=== PATIENT | female | born 1985 | race Caucasian/White ===

== ENCOUNTER 2023-08-03 11:34 | Emergency (ER) | payer BC, SELFPAY ==
--- NOTE | ~2023-08-03 | XR_ITS ---
Right wrist Technique: PA, oblique, lateral, and ulnar deviation views were obtained. Clinical History: Pain Findings: There is a transverse, nondisplaced fracture of the distal radial metaphysis. No intra-otis cular extension seen. Joint spaces are preserved. Soft tissues are unremarkable. Impression: Transverse, nondisplaced fracture of the distal radial metaphysis. No intra-articular extension. Reviewed, dictated and finalized at location . Impression: Transverse, nondisplaced fracture of the distal radial metaphysis. No intra-art icular extension.
--- NOTE | ~2023-08-03 | XR_ITS ---
Right Forearm AP and lateral views of the right forearm were performed. Clinical History: Pain Findings: There is a transverse, nondisplaced fracture the distal radial metaphysis. No other fractur e seen. Joint spaces are preserved. Soft tissues are unremarkable. Impression: Transverse, nondisplaced fracture of the distal radial metaphysis. Reviewed, dictated and finalized at location . Impression: Transverse, nondisplaced fracture of the distal radial metaphysis.
[2023-08-03 11:35] VITALS: BP 134/96; PULSE 84; RESP 16; TEMP 36.8; O2SAT 100
--- NOTE | 2023-08-03 12:43 | ED.GENADULT ---
HPI - General Adult General Chief complaint: Extremity Injury, Upper Stated complaint: R wrist pain Time Seen by Provider: 08/03/23 12:25 Source: patient Mode of arrival: ambulatory Limitations: no limitations History of Present Illness HPI narrative: This is a 37-year-old female who presents to the ED with chief complaint of right wrist injury that occurred 3 days ago. Reports she was at her son's sporting events when ball went out and she tried to stop it with her hand. She reports the ball directly struck her right wrist. Reports pain and swelling getting worse since injury. Reports minimal relief with ibuprofen at this point. Denies any further site of pain or. Denies numbness or weakness. Related Data Allergies Allergy/AdvReac Type Severity Reaction Status Date / Time No Known Allergies Allergy Verified 08/03/23 11:39 Review of Systems Review of Systems: All systems as dictated in HPI Exam Narrative: GENERAL: Well-appearing, well-nourished, and in no acute distress. HEAD: Normocephalic, atraumatic. EYES: PERRLA and EOMI. ENT: Nares clear, no rhinorrhea or epistaxis. Mucous membranes moist. Oropharynx without tonsillar hypertrophy exudate or other lesions. NECK: Supple. No adenopathy or masses. CHEST: No respiratory distress. Clear to auscultation. No wheezes rales or rhonchi HEART: Regular rate and rhythm. No murmur heard. Normal peripheral pulses. ABDOMEN: Soft, nontender, nondistended, normal active bowel sounds. MSK: RUE: No deformity. Tenderness throughout the right wrist joint. There is anatomical snuffbox tenderness present. Mild bruising in the area. Nearly full range of motion of the hand. Neurovascularly intact distally. Compartments soft. LUE: Benign SKIN: Warm, dry, no rash. NEURO: Alert and oriented x3. No focal deficits. PSYCH: Normal mood and affect. Course Vital Signs Vital signs: Vital Signs Temperature 98.2 F 08/03/23 11:35 Pulse Rate 84 08/03/23 11:35 Respiratory Rate 16 08/03/23 11:35 Blood Pressure 134/96 H 08/03/23 11:35 Pulse Oximetry 100 08/03/23 11:35 Oxygen Delivery Room Air 08/03/23 11:35 Temperature 98.2 F 08/03/23 11:35 Pulse Rate 84 08/03/23 11:35 Respiratory Rate 16 08/03/23 11:35 Blood Pressure 134/96 H 08/03/23 11:35 Pulse Oximetry 100 08/03/23 11:35 Oxygen Delivery Room Air 08/03/23 11:35 Procedures Orthopedic Splinting/Casting Injury #1: Splinting/Casting Date: 08/03/23 Splinting/Casting Time: 13:04 Side: right Upper Extremity Injury Location: forearm Upper Extremity Immobilizer: thumb spica Splint: customized in ED OCL: thumb spica Pre-Procedure Neuro Vascular Exam: normal Post-Procedure Neuro Vascular Exam: normal Medical Decision Making MDM Narrative Medical decision making narrative: This is a 37-year-old female who presents to the ED with chief complaint of right wrist injury that occurred Wednesday vitals are normal. Exam is remarkable for the above. X-rays of the right wrist and forearm show a nondisplaced transverse fracture of the right distal radius. There is no other fracture or dislocation. No intra-articular involvement. She does have anatomical snuffbox tenderness on exam. Thumb spica splint was placed. Prescription for [place] given. Ortho referral given as well. Pt will be discharged in stable condition. Return precautions given and supportive measures discussed. Pt is understanding and agreeable with plan for discharge and follow-up with PCP. Vital Signs Vital Signs: Vital Signs Temperature 98.2 F 08/03/23 11:35 Pulse Rate 84 08/03/23 11:35 Respiratory Rate 16 08/03/23 11:35 Blood Pressure 134/96 H 08/03/23 11:35 Pulse Oximetry 100 08/03/23 11:35 Oxygen Delivery Room Air 08/03/23 11:35 Temperature 98.2 F 08/03/23 11:35 Pulse Rate 84 08/03/23 11:35 Respiratory Rate 16 08/03/23 11:35 Bloo
[2023-08-03] MEDS: HYDROcodone/acetaminophen (*CRX) 7.5-325 MG TABLET 1 TAB PO (12:50)
[2023-08-03] MEDS: KETOROLAC 30 MG/ML VIAL (*BKC) IM (12:50)
== END 2023-08-03 13:17 | disposition home or self-care (01) ==
PROVIDERS: Emergency Provider Physician Assistant; PCP Family Medicine
DX: S52.591A Other fractures of lower end of right radius, initial encounter for closed fracture (principal); W21.02XA Struck by soccer ball, initial encounter
CPT/HCPCS: 29125; 73090; 73110; 96372; 99284; A9270; J1885

== ENCOUNTER 2024-12-28 08:18 | Outpatient (CLI) | payer BC, SELFPAY ==
--- NOTE | ~2024-12-28 | XR_ITS ---
CHEST RADIOGRAPH, PA AND LATERAL CLINICAL HISTORY: R05.9 - Cough, unspecified SOB AND COUGH . COMPARISON: None available TECHNIQUE: PA and lateral views of the chest. FINDINGS The cardiomediastinal silhouette is unremarkable. The lungs are clear. Visualized osseous structures and soft tissues are unremarkable. IMPRESSION: No focal infiltrate or effusion. Reviewed, dictated and finalized at location A. RACTIVE DIGITAL MEDIA SPECIALIST
--- OUTSIDE RECORDS SUMMARY | 2024-12-28 08:29 | XMS_ITS | Clinical Summary ---
Author Organization [facility] Address [address] [place], [place] [id number] Care Team Providers Care Hoop Flaring Machine Operator Name Role Phone Sidra Lang MD Primary Care Provider Allergies No known active allergies Medications HYDROcodone-piper taminophen (NORCO) 5-325 mg per tablet Take by mouth every 8 (eight) hours as needed 3 Active fluticasone furoate-vilante roL (Breo Ellipta) 100-25 mcg/dose diskus inhaler Inhale 1 puff daily 1 Active fluticasone propionate (FLONASE) 50 mcg/actuation nasal spray Administer 2 sprays into affected nostril(s) daily 0 Active escitalopram (LEXAPRO) 10 mg tablet 3 Active busPIRone (BUSPAR) 15 mg tablet 3 Active benzonatate (TESSALON) 200 mg capsuleIndicati ons:Viral URI with cough Take 1 capsule (200 mg total) by mouth 3 (three) times a day as needed for cough 42 capsule 3 Active Active Problems Problem Noted Date Diagnosed Date Hyperlipidemia 08/10/2023 Severe menstrual cramps 05/13/2017 Chronic diarrhea 03/10/2014 Overview (01/29/2017): Chronic Diarrhea Vaginal delivery 11/04/2011 Medical History Medical History Date Comments Anemia Anxiety Asthma Hypercholesteremia Family History Medical History Relation Name Comments Alcohol abuse Brother Hypertension Brother Alcohol abuse Father Oscar Martinezen Heart disease Father Oscar Martinezen Heart disease ; ALS Mother ALS; Cause of D eath: ALS Heart disease Mother Hypertension Mother Stroke Other 4 Stroke; Cause o f : Stroke Hypertension Other 5 Hypertension; Hyperlipidemia Other 6 Hyperlipidemi a; Relation Name Status Comments Brother Father Oscar Sanford Alive Mother Other 1 Other 2 Alive Other 3 Alive Other 4 Other 5 Other 6 Social History Tobacco Use Types Packs/Day Years Used Date Smoking Tobacco: Never Smokeless Tobacco: Never Tobacco Cessation:Counseling Given: Not Answered Alcohol Use Standard Drinks/Week Comments Yes 0 (1 standard drink = 0.6 oz pur e alcohol) Comments No Sex and Gender Information Value Date Recorded Sex Assigned at Not on file Legal Sex Female 1:03 AM VENDOR QUALITY SUPERVISOR Gender Identity Not on file Sexual Orientation Not on file Obstetrics History Last Filed Vital Signs Vital Sign Reading Time Taken Comments Blood Pressure 126/86 09/06/2023 4:28 PM VENDOR QUALITY SUPERVISOR Pulse 73 09/06/2023 4:28 PM VENDOR QUALITY SUPERVISOR Temperature 36.7 C (98.1 F) 09/06/2023 4:28 PM VENDOR QUALITY SUPERVISOR Respiratory Rate 18 09/06/2023 4:28 PM VENDOR QUALITY SUPERVISOR Oxygen Saturation 98% 09/06/2023 4:28 PM VENDOR QUALITY SUPERVISOR Inhaled Oxygen Concentration - - Weight 74.8 kg (165 lb) 09/06/2023 4:28 PM VENDOR QUALITY SUPERVISOR Height 154.9 cm (5' 0.98 ) 09/06/2023 4:28 PM CS T Body Mass Index 31.19 09/06/2023 4:28 PM VENDOR QUALITY SUPERVISOR Plan of Treatment Health Maintenance Due Date Last Done Comments Cervical Cancer Screening 1985 Depression Screening 1985 Hepatitis C Screening 1985 Hepatitis B Screening 2003 Regular Well Visit/Exam 18-64 2003 Varicella Vaccines (1 of 2 - 13+ 2-dose series) 08/15/2020 Covid-19 Vaccine ( - season) 2024 11/01/2020, 10/11/2020 DTaP/Tdap/Td Vaccine (4 - Td or Tdap) 06/25/2024 06/25/2014, 08/21/2010, 05/16/2008 Influenza Vaccine (#1) 2024 2, 07/18/2020, 07/18/2020, Additional history exists Pneumococcal vaccine <65 Aged Out 02/22/2015 No longer eligible based on patient's age to complete this topic HPV Vaccines Aged Out No longer eligi ble based on patient's age to complete this topic Insurance [employer] ACCESS OOS Care Teams Hoop Flaring Machine Operator Relationship Specialty Start Date End Date Sidra Lang MD PCP - General Family Medicine 09/06/23
--- OUTSIDE RECORDS SUMMARY | 2024-12-28 08:29 | XMS_ITS | Encounter Summary ---
Author Organization [facility] Address [address] [address] Phone Care Team Providers Care Transfer Car Operator Name Role Phone Sidra Lang MD Primary Care Provider [phone] [phone] Reason for Referral * Radiology Services (Routine) - Closed Specialty Diagnoses / Procedures Referred By Quinn larry Referred To Contact Radiology Diagnoses Right ankle pain, unspecified chronicity Procedures XR ANKLE 3 OR MORE VIEWS RIGHT Cheo Daniels DPM [address] [place] [id number] Phone: tel: fax: Referral ID Status Reason Start Date Expiration Date Visits Re quested Visits Authorized [id number] Closed 10/06/2021 1 1 R SEPARATION PHOTOGRAPHER Encounter Details Date Type Department Care Team (Latest Contact Info) Description 10/06/2021 Transcribe Orders [facility] Patient Access Admitting [address] [place] [id number] Cheo Daniels DPM [address] [place] [id number] Right ankle pain, unspecified chronicity (Primary Dx) Social History Tobacco Use Types Packs/Day Years Used Date Smoking Tobacco: Never Smokeless Tobacco: Never Alcohol Use Standard Drinks/Week Comments No 0 (1 standard drink = 0.6 oz pur e alcohol) PHQ-2 Answer Date Recorded Total Score - Questions 1-9 13 04/2020 Education Answer Date Recorded What is the highest level of school you have completed or the highest degree you have received? Master's degree (e.g., MA, MS, Theresa, MEd, PRINCIPAL ACCOUNTS CLERK, CALEB) 03/07/2021 Sexually Active Control Partners Comments Never Comments No Sex and Gender Information Value Date Recorded Sex Assigned at Not on file Legal Sex Female 9:31 PM CDT Gender Identity Not on file Sexual Orientation Not on file COVID-19 Exposure Response Date Recorded In the last month, have you been in contact with someone who was confirmed or suspected to have Coronavirus / COVID-19? No / Unsure 10/07/2021 7:47 AM COLOR SEPARATION PHOTOGRAPHER documented as of this encounter Plan of Treatment Not on file documented as of this encounter Results * XR ANKLE 3 OR MORE VIEWS RIGHT (10/07/2021 8:12 AM COLOR SEPARATION PHOTOGRAPHER) Anatomical Region Laterality Modality LOWER EXTREMITY, ankle Right Digital R adiography 10/07/2021 9:56 AM COLOR SEPARATION PHOTOGRAPHER Impressions 10/07/2021 9:59 AM COLOR SEPARATION PHOTOGRAPHER IMPRESSION: Moderate lateral right ankle soft tissue swelling. Small right ankle effusion. Narrative 10/07/2021 9:59 AM COLOR SEPARATION PHOTOGRAPHER EXAM DESCRIPTION: XR ANKLE 3 OR MORE VIEWS RIGHT REASON FOR STUDY: Pain in right ankle and joints of right foot TECHNIQUE: Three views weight-bearing submitted with comparison 06/09/2021. FINDINGS: There is moderate lateral right ankle soft tissue swelling. No acute fractures identified. The ankle joint space and mortise appear normal. Ankle effusion is present. THIS IS AN ELECTRONICALLY VERIFIED FINAL REPORT 10/07/2021 9:56 AM - Electronically signed by Jeremy Kumar M.D. MF: ISAC Report ID: [id number] Reading Location: [id number] Procedure Note Jeremy Kumar MD - 10/07/2021 EXAM DESCRIPTION: XR ANKLE 3 OR MORE VIEWS RIGHT REASON FOR STUDY: Pain in right ankle and joints of right foot TECHNIQUE: Three views weight-bearing submitted with comparison 06/09/2021. FINDINGS: There is moderate lateral right ankle soft tissue swelling. No acute fractures identified. The ankle joint space and mortise appear normal. Ankle effusion is present. THIS IS AN ELECTRONICALLY VERIFIED FINAL REPORT 10/07/2021 9:56 AM - Electronically signed by Jeremy Kumar M.D. MF: ISAC Report ID: [id number] Reading Location: [id number] IMPRESSION: Moderate lateral right ankle soft tissue swelling. Small right ankle effusion. Cheo Daniels DPM IMG DIAGNOSTIC ORDERABLES Fin al Result documented in this encounter Visit Diagnoses Diagnosis Right ankle pain, unspecified chronicity- Primary Right ankle pain, unspecified chronicity documented in this encounter Additional Health Concerns Infection Onset Date Last Indicated Resolved Time COVID - 19 10/30/2021 10/30/2021 11/01/2021 3:44 PM COLOR SEPARATION PHOTOGRAPHER COVID - 19 Confirmed 10/30/2021 10/30/2021 022 12:16 AM COLOR SEPARATION PHOTOGRAPHER COVID - 19 08/18/2022 08/18/2022 08/28/2022 12:1 6 AM CDT Assessment Noted Time PHQ-9 Depression Total Score: 13 020 2:16 PM CDT documented as of this encounter Care Teams Transfer Car Operator Relationship Specialty Start Date End Date Sidra Lang MD [address] [place] [address] PCP - General Family Medicine 09/17/15 04/09/24 documented as of this encounter
--- OUTSIDE RECORDS SUMMARY | 2024-12-28 08:29 | XMS_ITS | Clinical Summary ---
Author Organization [facility] Address [address] [address] Phone Care Team Providers Care Aluminum Boat Inspector Name Role Phone Unavailable Primary Care Provider Unavailabl e Allergies No known active allergies Medications Docusate Calcium (STOOL SOFTENER PO) Take by mouth. Activ e Acetaminophen (TYLENOL PO) Take by mouth. Ac tive fluticasone (FLONASE) 50 MCG/ACT Suspension 2 Sprays by Nasal route daily. Use in each nostril as directed. 1 Bottle 3 0 Active ALBUTEROL IN take by inhalation. Active diphenhydrAMINE HCl (BENADRYL PO) Take by mouth. Activ e guaiFENesin (MUCINEX PO) Take by mouth. Ac tive fluticasone-vivienne nterol (Breo Ellipta) 100-25 MCG/INH AEROSOL POWDER, BREATH ACTIVATED take 1 Puff by inhalation daily. 1 Each 2 1 Active naproxen sodium (ANAPROX) 220 MG Tablet Take 220 mg by mouth 2 times daily (with meals). Active traMADol (ULTRAM) 50 MG TabletIndication s:Acute right ankle pain Take 1 Tablet by mouth every 6 hours as needed for Moderate or more severe pain. 20 Tablet 1 Active Additional Information Patient not taking.Reported on 08/18/2022 Naproxen Sod-diphenhydrAM INE 220-25 MG Tablet naproxen 220 mg-diphenhydram ine 25 mg tablet Take by oral route. Active Neomycin-Polymyx in-Dexameth 0.1 % Ointment neomycin 3.5 mg/g-polymyxin B 10,000 unit/g-dexameth 0.1 % eye oint APPLY A SMALL AMOUNT TO THE AFFECTED AREA EVERY NIGHT AT BEDTIME AFTER WARM COMPRESS Active escitalopram (LEXAPRO) 10 MG TabletIndication s:Depression, unspecified depression type TAKE 1 TABLET BY MOUTH DAILY 90 Tablet 1 3 Active busPIRone (BUSPAR) 15 MG Tablet TAKE 1 TABLET BY MOUTH TWICE DAILY 180 Tablet 1 3 Active Active Problems Problem Noted Date Diagnosed Date Severe menstrual cramps 05/13/2017 Hyperlipidemia Immunizations Immunization Administration Dates Next Due Covid-19, Mrna, Lnp-s, Pf, 3 0 Mcg/0.3 Ml Dose (DancingAnchovy) 11/01/2020,10/11/2020 Influenza Vaccine Nasal 07/18/2020 Influenza Vaccine greater than 3 yrs 07/25/2016, 07/25/2015,11/05/2011 Influenza Vaccine less than 3 yrs 07/26/2019,10/2016 Influenza Vaccine, Quadrivalent, PF 08/04/2022,0 07/18/2020 Influenza, Seasonal, Injecta ble, Undefined 07/26/2019,07/25/2017,07/25/2016,07/25,10/25/2011 Meningococcal Polysaccharide Vaccine (MPSV4) 05/12/2004 Pneumococcal Vaccine Adult - 23 Valent 5 TDAP Vaccine 06/25/2014,08/21/2010,05/16/2008 Typhoid, ViCPs 02/28/2015 Family History Medical History Relation Name Comments Congestive Heart Failure Father Hypertension Father Relation Name Status Comments Father Alive Mother Social History Tobacco Use Types Packs/Day Years Used Date Smoking Tobacco: Never Smokeless Tobacco: Never Tobacco Cessation:Counseling Given: No Alcohol Use Standard Drinks/Week Comments No 0 (1 standard drink = 0.6 oz pur e alcohol) PHQ-2 Answer Date Recorded Total Score - Questions 1-9 5 07/26 Education Answer Date Recorded What is the highest level of school you have completed or the highest degree you have received? Master's degree (e.g., MA, MS, Theresa, MEd, CURATOR OF MANUSCRIPTS, CALEB) 03/07/2021 Sexually Active Control Partners Comments Never Comments No Sex and Gender Information Value Date Recorded Sex Assigned at Not on file Legal Sex Female 9:31 PM CDT Gender Identity Not on file Sexual Orientation Not on file Last Filed Vital Signs Vital Sign Reading Time Taken Comments Blood Pressure 108/64 08/18/2022 11:23 AM CDT Pulse 69 08/18/2022 11:23 AM CDT Temperature 36.5 C (97.7 F) 08/18/2022 11:23 AM CDT Respiratory Rate 18 08/18/2022 11:23 AM CDT Oxygen Saturation 97% 08/18/2022 11:23 AM CDT Inhaled Oxygen Concentration - - Weight 61.2 kg (135 lb) 08/18/2022 11:23 AM CDT Height 154.9 cm (5' 1 ) 08/18/2022 11:23 AM CDT Body Mass Index 25.51 08/18/2022 11:23 AM CDT Plan of Treatment Health Maintenance Due Date Last Done Comments Hepatitis C Virus (HCV) Screening 1985 Hepatitis B Immunization (1 of 3 - 19+ 3-dose series) 2004 HPV/Cotest 2015 Cervical Cancer Screening (CCS) 05/13/2020 Pap Smear 05/13/2020 05/13/2017, 12/21/2012 Influenza Immunization (#1) 06/25/202407/25, 07/18/2020, 07/18/2020, Additional history exists SARS-COV-2 Immunization ( season) 2024 11/01/2020, 10/11/2020 Td Immunization Every 10 Years (Adults With 1 Tdap) 06/25/2024 06/25/2014, 08/21/2010, 05/16/2008 Respiratory Syncytial Virus (RSV) Immunization (Adult) (1 - 1-dose 75+ series) 2060 Meningococcal Immunization (ACWY) Aged Out 05/12/2004 No longer eligible based on patient's age to complete this topic Pneumococcal Immunization Combined Aged Out 02/22/2015 No longer eligible based on patient's age to complete this topic Rotavirus Immunization Aged Out No lo nger eligible based on patient's age to complete this topic Medical Devices Implanted Type Area Tax Attorney Device Identifier Shelf Expiration Date Model / Serial / Lot Implant Sysyem, Internalbrace Lisfranc Ligament Augmentation Implanted:Qty: 1 on 11/22/2019 by Paulino Hunt DPM at [facility] Left: Foot [employer] 06/24/2023 AR-1698-CP / [id number] / [id number] Dx Swivelock Implanted:Qty: 1 on 11/22/2019 by Paulino Hunt DPM at [facility] Left: Foot 12/23/2023 [id number] / [id number] / [id number] Procedures Procedure Name Priority Date/Time Associated Diagnosis Comments PATHOLOGY CYTOLOGY ICER MACHINE OPERATOR Routine 05/13/2017 4:55 PM CDT Well woman exam from Last 3 Months or Most Recently Relevant to Health Maintenance Results * PATHOLOGY CYTOLOGY ICER MACHINE OPERATOR (05/13/2017 4:55 PM CDT) SPECIMEN ADEQUACY Satisfactory for evaluation. No endocervical cells present. 05/18/2017 1:24 PM CDT [facility] DESCRIPTIVE DIAGNOSIS Negative for intraepithelial lesions. No dysplastic cells present. 05/18/2017 1:24 PM CDT [facility] MATED EXAMINATION Analysis of this sample has been assisted by an automated imaging and review system ([employer] System, [employer], [place], [place]). This case is further evaluated and finalized by a jeweler apprentice and/or pathologist. 05/18/2017 1:24 PM CDT [facility] DISCLAIMER The PAP smear is a screening test designed to detect cancerous or precancerous cells of the uterine cervix. It is one of the best means available for detection of cervical cancer but still carries an inherent false-negative rate. The consequences of a false-negative PAP result can be minimized by adhering to current screening guidelines. The following are general guidelines recommended by the ACS, ASCP, ASCCP, and ACOG: PAP testing is recommended every three years for women 21-29, Co-Testing , a PAP test in conjunction with an HPV (Human Papillomavirus) test for women ages 30-65, and no PAP or HPV testing for women under the age of 21 or older than 65 unless clinically indicated. 05/18/2017 1:24 PM CDT [facility] Case Report Gynecologic Cytology Report Case: [id number] Authorizing Provider: Sidra Lang MD Collected: 05/13/2017 04:55 PM Ordering Location: [facility] PHYSICIAN Received: 05/13/2017 04:55 PM [facility] First Screen: Keri Clemente Specimen: Cervical/Endocervic al, liquid based thin layer preparation (Thin Prep ), CERVIX/ENDOCERVIX 05/18/2017 1:24 PM CDT [facility] HPV Reflex if ASCUS? Yes 05/18/2017 1:24 PM CDT [facility] Specimen of unknown material (specimen) CERVIX UTERI STRUCTURE / Unknown 05/13/2017 4:55 PM CDT 05/13/2017 4:55 PM CDT Sidra Lang MD PATHOLOGY/CYTOLOGY ORDERABL ES Final Result Performing Organization Address City/State/[facility] Co de Phone Number [facility] [address] [place] [address], from Last 3 Months or Most Recently Relevant to Health Maintenance Insurance [facility] OS EMPLOYEE (Home[address] [phone]
--- OUTSIDE RECORDS SUMMARY | 2024-12-28 08:29 | XMS_ITS | Encounter Summary ---
Author Organization [facility] Address [address] [address] Phone Care Team Providers Care School Library Media Program Director Name Role Phone Sidra Lang MD Primary Care Provider [phone] Reason for Visit * Reason Comments Medication Refill Encounter Details Date Type Department Care Team (Late st Contact Info) Description 11/08/2023 Refill [facility] - Family Medicine [facility] [address] [place] [address] Sidra Lang MD [address] [place] [address] Medication Refill Social History Tobacco Use Types Packs/Day Years [...] degree you have received? Master's degree (e.g., DARLIN, MS, Theresa, Nathan, CRM MARKETING ANALYST, CALEB) 03/07/2021 Sexually Active Control Partners Comments Never Comments No Sex and Gender Information Value Date Recorded Sex Assigned at Not on file Legal Sex Female 9:31 PM CDT Gender Identity Not on file Sexual Orientation Not on file documented as of this encounter Miscellaneous Notes * Telephone Encounter - Anna Wahl RMA - 11/09/2023 12:54 PM WELL SHOOTER Lvm to schedule CYNTHIA if she would like. SHOOTER * Telephone Encounter - Jenny Driscoll APRN, CNP - 11/09/2023 7:30 AM WELL SHOOTER Needs appointment and needs to schedule a CYNTHIA with new provider. SHOOTER * Telephone Encounter - Valeria Starkey RN - 11/08/2023 1:13 PM CST Medication failed the protocol, provider to review and approve the medication order if appropriate. Requested Prescriptions Pending Prescriptions Disp Refills escitalopram (LEXAPRO) 10 MG Tablet [Pharmacy Med Name: Escitalopram Oxalate 10 MG Oral Tablet] 30 Tablet 0 Sig: TAKE 1 TABLET BY MOUTH DAILY [facility] (6 Month Refill Only) Protocol Failed - 11/08/2023 7:26 AM Failed - Visit with relevant provider in past 6 months or upcoming 90 days Recent Visits No visits were found meeting these conditions. Showing recent visits within past 182 days and meeting all other requirements Future Appointments No visits were found meeting these conditions. Showing future appointments within next 90 days and meeting all other requirements Failed - Has an encounter in the past 6 months with a depression, anxiety, adjustment disorder, OCD, or PTSD visit diagnosis Passed - No test in the past 12 months or most recent test was negative Passed - No active on record Passed - Patient has established therapy with [facility] for at least 6 months SHOOTER documented in this encounter Plan of Treatment Not on file documented as of this encounter Visit Diagnoses Diagnosis Depression, unspecified depression type documented in this encounter Additional Health Concerns Assessment Noted Time PHQ-9 Depression Total Score: 5 08/18/20 22 11:00 AM CDT documented as of this encounter Care Teams School Library Media Program Director Relationship Specialty Start Date End Date Sidra Lang MD [address] [place] [phone] PCP - General Family Medicine 09/17/15 04/09/24 documented as of this encounter
--- OUTSIDE RECORDS SUMMARY | 2024-12-28 08:29 | XMS_ITS | Encounter Summary ---
Author Organization [facility] Address [address] [place] [address] Phone Care Team Providers Care Highway Painter Name Role Phone Sidra Lang MD Primary Care Provider [phone] Reason for Visit * Reason Comments Medication Refill Encounter Details Date Type Department Care Team (Late st Contact Info) Description 12/30/2020 Refill [facility] - Family Medicine [facility] [address] [place] [address] Sidra Lang MD [address] [place] [address] Medication Refill Social History Tobacco Use Types Packs/Day Years Used Date Smoking Tobacco: Never Smokeless Tobacco: Never Alcohol Use Standard Drinks/Week Comments No 0 (1 standard drink = 0.6 oz pur e alcohol) PHQ-2 Answer Date Recorded Total Score - Questions 1-9 13 04/2020 Sexually Active Control Partners Comments Never Comments No Sex and Gender Information Value Date Recorded Sex Assigned at Not on file Legal Sex Female 9:31 PM CDT Gender Identity Not on file Sexual Orientation Not on file documented as of this encounter Miscellaneous Notes * Telephone Encounter - Valeria Starkey RN - 12/30/2020 3:02 PM CST The original prescription was reordered on 12/30/2020 by Sidra Lang MD duplicate LESS TEAM MEMBER documented in this encounter Plan of Treatment Not on file documented as of this encounter Visit Diagnoses Not on filedocumented in this encounter Additional Health Concerns Infection Onset Date Last Indicated Resolved Time COVID - 19 03/06/2021 03/06/2021 03/09/2021 7:02 AM CDT COVID - 19 10/30/2021 10/30/2021 11/01/2021 3:44 PM WIRELESS TEAM MEMBER COVID - 19 Confirmed 10/30/2021 10/30/2021 022 12:16 AM WIRELESS TEAM MEMBER COVID - 19 08/18/2022 08/18/2022 08/28/2022 12:1 6 AM CDT Assessment Noted Time PHQ-9 Depression Total Score: 13 020 2:16 PM CDT documented as of this encounter Care Teams Highway Painter Relationship Specialty Start Date End Date Sidra Lang MD [address] [place] [address] PCP - General Family Medicine 09/17/15 04/09/24 documented as of this encounter
--- OUTSIDE RECORDS SUMMARY | 2024-12-28 08:29 | XMS_ITS | Encounter Summary ---
Author Organization [facility] Address [address] [place] [address] Care Team Providers Care Javascript Engineer Name Role Phone Ne Alexander MD Primary Care Provider [phone] Encounter Details Date Type Department Care Team (Late st Contact Info) Description 01/20/2008 Inpatient Historical [facility] Shira Bruno MD NO ADDRESS ON FILE Social History Tobacco Use Types Packs/Day Years Used Date Smoking Tobacco: Never Assessed Comments Unknown Sex and Gender Information Value Date Recorded Sex Assigned at Not on file Legal Sex Female 5:32 AM PHOTOGRAPHY ASSISTANT Gender Identity Not on file Sexual Orientation Not on file documented as of this encounter Plan of Treatment Not on file documented as of this encounter Visit Diagnoses Not on filedocumented in this encounter Care Teams Javascript Engineer Relationship Specialty Start Date End Date Ne Alexander MD PCP - General Internal Medicine 06/04/10 documented as of this encounter
--- OUTSIDE RECORDS SUMMARY | 2024-12-28 08:29 | XMS_ITS | Clinical Summary ---
Author Organization [facility] Address [address] [place] [address] Phone Care Team Providers Care Professor Of Oceanography Name Role Phone Ne Alexander MD Primary Care Provider [phone] Allergies No known active allergies Medications vit-iron fumarate-fa () 28-0.8 mg Oral Tab Take 1 Tab by mouth daily. Active ferrous sulfate 134 mg (27 mg iron) Oral Tab Take 1 Tab by mouth daily. Active oxyCODONE-aceta minophen (PERCOCET) 5-325 mg Oral tablet Take 1 Tab by mouth every 4 hours as needed for Pain, Moderate (For Pain Scale 4-6). 20 Tab 0 11/06/2011 Active ibuprofen (MOTRIN) 600 mg Oral tablet Take 1 Tab by mouth every 6 hours as needed for Pain. 20 Tab 1 11/06/2011 Active Active Problems Problem Noted Date Diagnosed Date Vaginal delivery 11/0411/04/2011 labor, GBS+, O+,arom 08/20/2010 Resolved Problems Problem Noted Date Diagnosed Date Resolved Date (weu) labor, O+, GBS pos, pcn, AROM 1130 11/04/2011 11/04/2011 Immunizations Immunization Administration Dates Next Due (ADACEL/BOOSTRIX)(10 YR UP) TDAP VACCINE, 0.5ML, IM 08/21/2010 Influenza Vaccine Split PF ID 11/05/2011 Family History Medical History Relation Name Comments Cancer Father skin Heart Disease Father Hypertension Father Other Mother ALS Relation Name Status Comments Father Alive Mother Social History Tobacco Use Types Packs/Day Years Used Date Smoking Tobacco: Never Alcohol Use Standard Drinks/Week Comments No 0 (1 standard drink = 0.6 oz pur e alcohol) Comments Unknown Sex and Gender Information Value Date Recorded Sex Assigned at Not on file Legal Sex Female 5:32 AM CONTINUOUS MINING MACHINE COAL MINER Gender Identity Not on file Sexual Orientation Not on file Occupation Industry Job Start Date Job End Date Not on file Not on file Not on file Not on file Last Filed Vital Signs Vital Sign Reading Time Taken Comments Blood Pressure 120/70 11/06/2011 8:19 AM CONTINUOUS MINING MACHINE COAL MINER Pulse 80 11/06/2011 8:19 AM CONTINUOUS MINING MACHINE COAL MINER Temperature 36.9 C (98.5 F) 11/06/2011 8:19 AM CONTINUOUS MINING MACHINE COAL MINER Respiratory Rate 20 11/06/2011 8:19 AM CONTINUOUS MINING MACHINE COAL MINER Oxygen Saturation 97% 11/04/2011 11:07 AM CONTINUOUS MINING MACHINE COAL MINER Inhaled Oxygen Concentration - - Weight 82.1 kg (181 lb) 11/04/2011 9:37 AM CONTINUOUS MINING MACHINE COAL MINER Height 157.5 cm (5' 2 ) 11/04/2011 9:37 AM CONTINUOUS MINING MACHINE COAL MINER Body Mass Index 33.11 11/04/2011 9:37 AM CONTINUOUS MINING MACHINE COAL MINER Plan of Treatment Health Maintenance Due Date Last Done Comments HEPATITIS B VACCINES (1 of 3 - 19+ 3-dose series) 2004 CERVICAL CANCER SCREENING 2015 DTAP/TDAP/TD VACCINES (2 - T d or Tdap) 08/21/2020 08/21/2010 INFLUENZA VACCINE (#1) 2024 11/05/2011 HPV VACCINES Aged Out No longer eligi ble based on patient's age to complete this topic Insurance BLUE ACCESS/TRUE BLUE PPO Advance Directives For more information, please contact: [phone] * Full Code (Latest Code Status on File) Date Activated Date Inactivated Comments 11/04/2011 4:22 PM 11/06/2011 12:46 PM * Full Code Date Activated Date Inactivated Comments 11/04/2011 9:47 AM 11/04/2011 4:22 PM * Full Code Date Activated Date Inactivated Comments 08/20/2010 9:40 PM 2010 2:30 PM * Full Code Date Activated Date Inactivated Comments 08/20/2010 10:43 AM 08/20/2010 9:40 PM * Full Code Date Activated Date Inactivated Comments 08/07/2010 1:19 PM 08/07/2010 5:29 PM Care Teams Professor Of Oceanography Relationship Specialty Start Date End Date Ne Alexander MD PCP - General Internal Medicine 06/04/10
--- OUTSIDE RECORDS SUMMARY | 2024-12-28 08:29 | XMS_ITS | Encounter Summary ---
Author Organization [facility] Address [address] [place] [address] Phone Care Team Providers Care Relay Checker Name Role Phone Sidra Lang MD Primary Care Provider [phone] Reason for Visit * Reason Comments Medication Refill Encounter Details Date Type Department Care Team (Late st Contact Info) Description 06/17/2023 Refill [facility] - Family Medicine [facility] [address] [place] [address] Sidra Lang MD [address] [place] [address] Medication Refill Social History Tobacco Use Types [...] Master's degree (e.g., [place], [place], Theresa, Nathan, FIREPOT OPERATOR AND TENDER, CALEB) 03/07/2021 Sexually Active Control Partners Comments Never Comments No Sex and Gender Information Value Date Recorded Sex Assigned at Not on file Legal Sex Female 9:31 PM CDT Gender Identity Not on file Sexual Orientation Not on file documented as of this encounter Miscellaneous Notes * Telephone Encounter - Valeria Starkey RN - 06/18/2023 9:12 AM CDT Medication failed the protocol, provider to review and approve the medication order if appropriate. Requested Prescriptions Pending Prescriptions Disp Refills escitalopram (LEXAPRO) 10 MG Tablet [Pharmacy Med Name: Escitalopram Oxalate 10 MG Oral Tablet] 90 Tablet 1 Sig: TAKE 1 TABLET BY MOUTH DAILY SSRI (6 Month Refill Only) Protocol Failed - 06/17/2023 9:25 PM Failed - Visit with relevant provider in [...] with SSRI for at least 6 months documented in this encounter Plan of Treatment Not on file documented as of this encounter Visit Diagnoses Diagnosis Depression, unspecified depression type documented in this encounter Additional Health Concerns Assessment Noted Time PHQ-9 Depression Total Score: 5 08/18/20 22 11:00 AM CDT documented as of this encounter Care Teams Relay Checker Relationship Specialty Start Date End Date Sidra Lang MD [address] [place] [address] PCP - General Family Medicine 09/17/15 04/09/24 documented as of this encounter
--- OUTSIDE RECORDS SUMMARY | 2024-12-28 08:29 | XMS_ITS | Referral Summary ---
Author Organization [facility] Address [address] [place] [address] Care Team Providers Care Aerographer Name Role Phone Sidra Lang MD Primary Care Provider [phone] Allergies No known active allergies Medications HYDROcodone-piper [...] Overview (01/29/2017): Chronic Diarrhea Vaginal delivery 11/04/2011 Social History Tobacco Use Types Packs/Day Years Used Date Smoking Tobacco: Never Smokeless Tobacco: Never Tobacco Cessation:Counseling Given: Not Answered Alcohol Use Standard Drinks/Week Comments Yes 0 (1 standard drink = 0.6 oz pur e alcohol) Comments No Sex and Gender Information Value Date Recorded Sex Assigned at Not on file Legal Sex Female 1:03 AM WELDER FITTER Gender Identity Not on file Sexual Orientation Not on file Last Filed Vital Signs Vital Sign Reading Time Taken Comments Blood Pressure 126/86 09/06/2023 4:28 PM WELDER FITTER Pulse 73 09/06/2023 4:28 PM WELDER FITTER Temperature 36.7 C (98.1 F) 09/06/2023 4:28 PM WELDER FITTER Respiratory Rate 18 09/06/2023 4:28 PM WELDER FITTER Oxygen Saturation 98% 09/06/2023 4:28 PM WELDER FITTER Inhaled Oxygen Concentration - - Weight 74.8 kg (165 lb) 09/06/2023 4:28 PM WELDER FITTER Height 154.9 cm (5' 0.98 ) 09/06/2023 4:28 PM CS T Body Mass Index 31.19 09/06/2023 4:28 PM WELDER FITTER Plan of Treatment Not on file Insurance [employer] Care Teams Aerographer Relationship Specialty Start Date End Date Sidra Lang MD PCP - General Family Medicine 09/06/23
--- OUTSIDE RECORDS SUMMARY | 2024-12-28 08:29 | XMS_ITS | Encounter Summary ---
Author Organization [facility] Address [address] [place] [address] Phone Care Team Providers Care Blocker And Cutter Contact Lens Name Role Phone Sidra Lang MD Primary Care Provider [phone] Reason for Visit * Reason Comments Medication Refill Encounter Details Date Type Department Care Team (Late st Contact Info) Description 07/21/2023 Refill [facility] - Family Medicine [facility] [address] [place] [address] Sidra Lang MD [address] [place] [address] Medication Refill Social History Tobacco Use Types [...] Master's degree (e.g., [place]AR[place], MS, Theresa, Nathan, RESIDENTIAL RECYCLE DRIVER, CALEB) 03/07/2021 Sexually Active Control Partners Comments Never Comments No Sex and Gender Information Value Date Recorded Sex Assigned at Not on file Legal Sex Female 9:31 PM CDT Gender Identity Not on file Sexual Orientation Not on file documented as of this encounter Miscellaneous Notes * Telephone Encounter - Valeria Starkey RN - 07/22/2023 1:12 PM CDT Medication failed the protocol, provider to review and approve the medication order if appropriate. Requested Prescriptions Pending Prescriptions Disp Refills busPIRone (BUSPAR) 15 MG Tablet [Pharmacy Med Name: BUSPIRONE 15MG TAB] 180 Tablet 1 Sig: TAKE 1 TABLET BY MOUTH TWICE DAILY Buspirone (6 Month Refill Only) Protocol Failed - 07/21/2023 7:30 PM Failed - Visit with relevant provider [...] in the past 6 months with a depression or anxiety visit diagnosis Passed - No test in the past 12 months or most recent test was negative Passed - No active on record Passed - Patient has established therapy with Buspirone for at least 6 months documented in this encounter Plan of Treatment Not on file documented as of this encounter Visit Diagnoses Not on filedocumented in this encounter Additional Health Concerns Assessment Noted Time PHQ-9 Depression Total Score: 5 08/18/20 22 11:00 AM CDT documented as of this encounter Care Teams Blocker And Cutter Contact Lens Relationship Specialty Start Date End Date Sidra Lang MD [address] [place] [address] PCP - General Family Medicine 09/17/15 04/09/24 documented as of this encounter
--- OUTSIDE RECORDS SUMMARY | 2024-12-28 08:29 | XMS_ITS | Encounter Summary ---
Author Organization [facility] Address [address] [place] [address] Care Team Providers Care Wildlife Refuge Manager Name Role Phone Ne Alexander MD Primary Care Provider [phone] Encounter Details Date Type Department Care Team (Late st Contact Info) Description 01/09/2008 Outpatient Historical [facility] Shira Bruno MD NO ADDRESS ON FILE Normal Delivery Social History Tobacco Use Types Packs/Day Years Used Date Smoking Tobacco: Never Assessed Comments Unknown Sex and Gender Information Value Date Recorded Sex Assigned at Not on file Legal Sex Female 5:32 AM RETAIL MERCHANDISING MANAGER Gender Identity Not on file Sexual Orientation Not on file documented as of this encounter Plan of Treatment Not on file documented as of this encounter Visit Diagnoses Diagnosis Normal delivery documented in this encounter Care Teams Wildlife Refuge Manager Relationship Specialty Start Date End Date Ne Alexander MD PCP - General Internal Medicine 06/04/10 documented as of this encounter
[2024-12-28 09:28] LABS: Beta HCG Quantitative < 2.39 mIU/ML
[2024-12-28 09:51] LABS: HIV 1/2 Ab P24 Ag Result Negative (Negative)
[2024-12-28 10:09] LABS: Hepatitis C Virus Antibody Negative (Negative)
[2024-12-29 11:38] LABS: FSH 7.7 mIU/mL; LH 15.4 mIU/mL; Progesterone <0.5 ng/mL
[2024-12-31 05:23] LABS: Hepatitis Be Antigen NON-REACTIVE (NON-REACTIVE)
[2025-01-01 15:18] LABS: RPR Screen NON-REACTIVE (NON-REACTIVE)
== END 2024-12-28 08:19 | disposition home or self-care (01) ==
PROVIDERS: PCP Nurse Practitioner; Visit Provider Obstetrics & Gynecology
DX: Z11.3 Encounter for screening for infections with a predominantly sexual mode of transmission (principal); N92.6 Irregular menstruation, unspecified; R05.9 Cough, unspecified
CPT/HCPCS: 36415; 71046; 83001; 83002; 84144; 84443; 84702; 86592; 86695; 86696; 86703; 86803; 87350; G0432